=== PATIENT | male | born 1985 | race Caucasian/White ===

== ENCOUNTER → 2021-08-30 | Outpatient (CLI) | payer SELFPAY ==
--- NOTE | 2021-09-01 10:55 | ECGEPIP ---
[facility] Test Date: 2021-08-30 Pat Name: MARILIA BROOKS Department: Room: - Gender: Male [employer] In[employer]: harry : 1985 Requested By: Other CDS - complete info on Order Number: [id number] Reading MD: Edmond Benson Measurements Intervals [place] Rate: 54 P: 32 WV: 168 QRS: 42 QRSD: 104 T: 27 QT: 434 QTc: 411 Interpretive Statements Sinus bradycardia with marked sinus arrhythmia No prior ECG available for comparison at the time of interpretation. Electronically Signed on 09-01-2021 10:55:11 EDT by Edmond Benson
== END ==
LOC: M EKG 14:13
DX: Z01.818 Encounter for other preprocedural examination (principal)